=== PATIENT | female | born 1995 | race Caucasian/White ===

== ENCOUNTER 2023-04-03 06:10 | Inpatient (IN) | payer MEDICAID, SELFPAY ==
[2023-04-03] VITALS (96 sets, daily range): BP systolic 76–149; BP diastolic 40–102; PULSE 59–115; RESP 16; TEMP 36.1–37.3; O2SAT 82–100; BMI 38.7
[2023-04-03 07:26] LABS: Basophils Percent Auto 0.4 % (0.2-1.2); Eosinophils Absolute Auto 0.3 K/mm3 (0-0.3); Eosinophils Percent Auto 3.7 % (0-4.4); Hematocrit 32.5 % (37.0-47.0); Hemoglobin 10.1 g/dL (12.0-15.0); Immature Granulocyte Absolute 0.06 K/mm3 (0.00-0.031); Immature Granulocyte Percent A 0.7 % (0-0.5); Lymphocytes Absolute Auto 0.96 K/mm3 (0.9-3.2); Lymphocytes Percent Auto 11.8 % (18.3-44.2); Mean Corpuscular HGB Conc 31.1 g/dl (32-36); Mean Corpuscular Hemoglobin 25.8 pg (26-34); Mean Corpuscular Volume 83.1 fl (80-100); Mean Platelet Volume 11.5 fl (7.4-10.4); Monocytes Absolute Auto 0.7 K/mm3 (0.1-0.6); Monocytes Percent Auto 8.6 % (2.6-8.5); Neutrophils Absolute Auto 6.1 K/mm3 (1.3-6.7); Neutrophils Percent Auto 74.8 % (45.5-73.1); Platelet Count Result 208 k/mm3 (150-375); Red Blood Count 3.91 M/mm3 (4.2-5.4); Red Cell Distribution Width 14.6 % (11.5-14.5); White Blood Count 8.2 K/mm3 (4.5-10.0)
[2023-04-03] MEDS: LACTATED RINGERS 1,000 ML 125 ML IV CONT ×2 (07:38→12:16)
[2023-04-03] MEDS: ceFAZolin 2 GM/D5W 50 ML 2 GM/50 ML BAG IVPB (07:39)
[2023-04-03] MEDS: OXYTOCIN 30 UNITS/NS 500 ML 30 UNITS/500 ML BAG IV CONT (07:40)
--- NOTE | 2023-04-03 07:56 | WPDOBADMIT ---
Obstetrics - Admit Note Admission Note: record reviewed. No pertinent additions to the history and/or any subsequent changes in the physical findings that are not consistent with the expected course of the were found. Additions to the history and/or subsequent changes in the physical findings follow. IOL, SVE /-2 AROM small amount of clear odorless fluid
--- NOTE | 2023-04-03 07:57 | LDADM ---
This patient, Elyssa Barone, was admitted to Labor/Delivery/Recovery 104 on 04/03/23 at 06:10. Plans for labor, pain management and were discussed with patient. Patient/family oriented to hospital policies and general routines including ID bracelet, bed and alarms, visiting hours, pain management, procedures, bathroom and other care routines, personal items, smoking policy, room service/diet and guest tray routines, security routines, and visiting hours. Patient/Family are encouraged to report perceived risks to care and to ask questions if they do not understand what they are told or what they should do. See OBIX for further documentation.
[2023-04-03 08:11] LABS: Amphetamine Screen Urine Negative (Negative); Barbiturate Screen Urine Negative (Negative); Benzodiazepines Screen Urine Negative (Negative); Cannabinoid Screen Urine Negative (Negative); Cocaine Screen Urine Negative (Negative); Methadone Screen Urine Negative (Negative); Opiate Screen Urine Negative (Negative); Phencyclidine Screen Urine Negative (Negative)
--- NOTE | 2023-04-03 09:29 | WPDANESEPP ---
Anes - Eval Pre Procedure Procedure: labor pain management Date/Time: 04/03/23 09:29 Surgeon: Negin Preop Diagnosis: pain during labor Pre Op Diagnosis: Induction of Labor Patient Data Age: 27 Gender: F Height: 1.65 m Weight: 105.5 kg Last Vital Signs Temp 97.7 F 04/03/23 09:00 Pulse 93 04/03/23 09:01 BP 128/87 04/03/23 09:01 O2 Del Method Room Air 04/03/23 07:47 Allergies Allergy/AdvReac Type Severity Reaction Status Date / Time amoxicillin Allergy Rash Verified 04/03/23 07:42 Home Medications Medication Instructions Recorded Confirmed Type lansoprazole 15 mg capsule,delayed 15 mg PO DAILY 03/09/23 03/09/23 History release (Prevacid 24Hr) levothyroxine 50 mcg tablet 50 mcg PO DAILY 03/09/23 03/09/23 History vits no.126-ferrous fum 1 tablet PO DAILY 03/09/23 03/09/23 History 28 mg iron-folic acid 800 mcg tablet (Classic ) sertraline 50 mg tablet 50 mg PO DAILY 03/09/23 03/09/23 History Laboratory Tests 04/03/23 04/03/23 07:17 07:34 WBC 8.2 K/mm3 (4.5-10.0) RBC 3.91 L M/mm3 (4.2-5.4) Hgb 10.1 L g/dL (12.0-15.0) Hct 32.5 L % (37.0-47.0) MCV 83.1 fl (80-100) MCH 25.8 L pg (26-34) MCHC 31.1 L g/dl (32-36) RDW 14.6 H % (11.5-14.5) Plt Count 208 k/mm3 (150-375) MPV 11.5 H fl (7.4-10.4) Immature Gran % (Auto) 0.7 H % (0-0.5) Neut % (Auto) 74.8 H % (45.5-73.1) Lymph % (Auto) 11.8 L % (18.3-44.2) [place] % (Auto) 8.6 H % (2.6-8.5) Eos % (Auto) 3.7 % (0-4.4) Baso % (Auto) 0.4 % (0.2-1.2) Lymph # (Auto) 0.96 K/mm3 (0.9-3.2) [place] # (Auto) 0.7 H K/mm3 (0.1-0.6) Eos # (Auto) 0.3 K/mm3 (0-0.3) Baso # (Auto) 0.0 K/mm3 (0.0-0.1) Abs Immat Gran (auto) 0.06 H K/mm3 (0.00-0.031) Absolute Neuts (auto) 6.1 K/mm3 (1.3-6.7) Absolute Nucleated RBC 0.0 K/mm3 (0.0-0.012) Nucleated RBC % 0.0 % (0.0-0.2) Urine Opiates Screen Negative (Negative) Urine Methadone Screen Negative (Negative) Ur Barbiturates Screen Negative (Negative) Ur Phencyclidine Scrn Negative (Negative) Ur Amphetamine Screen Negative (Negative) U Benzodiazepines Scrn Negative (Negative) Urine Cocaine Screen Negative (Negative) U Cannabinoids Screen Negative (Negative) RPR Pending Blood Type A Positive Antibody Screen Negative Patient hx anesthesia problems: none Family hx anesthesia problems: none Results Review: All pre-operative results and documents have been reviewed as part of the pre-operative evaluation. [facility] Past Medical History Medical History (Updated 04/03/23 @ 09:27 by Yanni Taylor CRNA) Depression Hypothyroid Surgical History Surgical History (Updated 04/03/23 @ 09:28 by Yanni Taylor CRNA) History of eye surgery Family History Family History (Updated 03/09/23 @ 13:35 by Ebony Chinchilla RN) Other No pertinent family history Social History Social History Smoking status: Former smoker Tobacco type: cigarettes Smoking end date: 05/04/15 Substance use: never Lack of Transportation: No Lack of Food: Never True Current Housing: I Have Housing Concerned About Future Housing: No Difficulty Paying Gas/Electric Bills: No Difficulty Paying for Meds: No Currently Unemployed: No Education: High School Diploma/GED Difficulty w/ Childcare or Family Care: No Spiritual care concerns: No Exam Day of Procedure 04/03/23 09:29
[2023-04-03 14:01] LABS: Rapid Plasma Reagin Non-Reactive (NonReactive)
--- NOTE | 2023-04-03 16:04 | PM.OBPRVD ---
OB - Vaginal Delivery Note Procedure Delivery date: 04/03/23 Induction method: AROM and Per Pitocin Protocol Delivery monitor: External FHT and Internal FHT Route of delivery: Episiotomy description: None Laceration Description: None Specimen: No Quantitative Blood Loss (ml): 100 Anesthesia type: Epidural Disposition: Floor Baby Date of : 04/03/23 Time of : 15:56 Weeks of gestation at delivery: 39 Infant gender: Female Weight (pounds): 9 Weight (ounces): 0 presentation: vertex position: Left Occiput Anterior Placenta delivery description: Spontaneous Cord Vessel Description: 3 Vessels, Nuchal Cord and Reduced Narrative: head delivered OA, rotated to DANNIELLE, anterior shoulder unable to be delivered, head of bed down, donaldo stahl, manually attempted to internally rotte, unable, suprapubic pressure and able to reach posterior rm, posterior shoulder then anterior shoulder and the rest of baby delivered without difficulty, about 50 sec dystocia. baby to warmer moving all extremities
[2023-04-03] MEDS: BENZOCAINE 20% AER SPR (*SP) 56 GM CAN 1 SPRAY TOPICAL (16:32)
[2023-04-03] MEDS: WITCH HAZEL 40 PADS 1 PAD TOPICAL (16:32)
[2023-04-03] MEDS: OXYTOCIN 30 UNITS/NS 500 ML 30 UNITS/500 ML BAG 125 UNITS IV CONT (16:32)
[2023-04-03] MEDS: IBUPROFEN 600 MG TABLET PO (18:44)
[2023-04-03] MEDS: ACETAMINOPHEN 325 MG TABLET 650 MG PO (18:45)
[2023-04-04] MEDS: IBUPROFEN 600 MG TABLET PO ×2 (04:36→10:00)
[2023-04-04 04:50] LABS: Hemoglobin 9.8 g/dL (12.0-15.0)
--- NOTE | 2023-04-04 09:34 | PM.OBPNVD ---
OB - PN: Subj Subjective Date/time seen: 04/04/23 09:34 Patient comments: no complaints, pain well controlled, incisional pain, tolerating diet and flatus present OB - PN: Obj Data Labs 04/04/23 04:34 Labs: Laboratory Results - last 24 hr 04/03/23 04/04/23 07:17 04:34 Hgb 9.8 L Hct 32.0 L RPR Non-reactive OB - PN A/P Plan day: 1 Plan: routine care Comments: No problems, routine care Time Spent With Patient Time: Total time spent is greater than 50% in coordination of care (as documented) at patient's floor/unit and/or counseling patient: Exam Const: General: comfortable, no acute distress and alert Resp: Effort & Inspection: normal respiratory effort Auscultation: no crackles, no rales and no rhonchi Cardio: Rate: regular rate Heart sounds: no click, no murmurs and no rubs GI: Inspection: non-distended GI Palp: No Tenderness to palpation present (GI) Auscultation: normal bowel sounds Other: Incision - CDI Extrem: General: normal to inspection, no pedal edema and no calf tenderness
--- NOTE | 2023-04-04 09:35 | PM.OBDSVD ---
DS: Admitting Diagnosis Discharge Date April 04, 2023 Admitting Diagnosis term DS: Discharge Diagnosis Discharge Diagnosis (1) Term delivered: Code(s): O80 - Encounter for full-term uncomplicated delivery Status: Acute OB - DS: Summary OB Procedures : None OB Procedures Intrapartum: Spontaneous Vag Delivery OB Procedures: : None Peripartum Data Laceration Description: None Episiotomy description: None Time Spent with Patient Time attestation: Total time spent providing and/or coordinating discharge services: DS: Data Data Completed and Pending Labs on day of discharge: Labs from last 24 hours 04/04/23 04/03/23 04:34 07:17 Hgb 9.8 L Hct 32.0 L RPR Non-reactive Discharge Plan Discharge Discharging Clinician: Flores Kam Patient Disposition: Home, Self-Care Activity: pelvic rest Diet: regular Patient Instructions: Antibiotic Form Stand Alone Forms: General Discharge Information Follow-up/Referrals: Flores Kam MD [Physician] - Discharge Medications: Continued Classic 28 mg iron- 800 mcg Tablet 1 tablet PO DAILY levothyroxine 50 mcg Tablet 50 mcg PO DAILY lansoprazole [Prevacid 24Hr] 15 mg Capsule,Delayed Release(Dr/Ec) 15 mg PO DAILY sertraline 50 mg Tablet 50 mg PO DAILY Date of admission: 04/03/23 06:10 Primary Care Provider: PHYSICIAN,F[employer]RE OPT[employer] JOINTER Admitting Provider: Flores Kam Attending physician on admission: Flores Kam Condition: Stable
[2023-04-04 10:00] VITALS: BP 117/79; PULSE 69; RESP 16; TEMP 36.6; O2SAT 98
[2023-04-04] MEDS: SERTRALINE HCL 50 MG TABLET PO (10:00)
[2023-04-04] MEDS: LEVOTHYROXINE SODIUM 50 MCG TABLET PO (10:00)
[2023-04-04] MEDS: POLYSACCHARIDE IRON COMPLEX 150 MG CAPSULE PO (10:00)
[2023-04-04] MEDS: DOCUSATE SODIUM 100 MG CAPSULE PO (10:00)
[2023-04-04] MEDS: MULTIVIT/MIN/PREN/FOL AC/IRON TABLET 1 TAB PO (10:00)
--- NOTE | 2023-04-04 13:55 | WPDANLDPN2 ---
Anes-Prog Note L&D Date/Time: 04/04/23 13:55 Comfortable throughout: labor and delivery Neuraxial method: epidural Epidural/Spinal procedure site: clean & non-tender Neuro status: Neuro function grossly intact. Cardiovascular status: normal Respiratory status: normal Airway patency: baseline Mental status: baseline Post-Op hydration status: normal Vital Signs: Last Vital Signs Temp 36.6 C 04/04/23 10:00 Pulse 69 04/04/23 10:00 Resp 16 04/04/23 10:00 BP 117/79 04/04/23 10:00 Pulse Ox 98 04/04/23 10:00 O2 Del Method Room Air 04/03/23 07:47 Pain score (VAS): 3 I/O: Intake & Output 04/03/23 04/04/23 04/04/23 23:59 07:59 15:59 Intake Total 500 Output Total 530 Balance -30 Post-procedural complaints: none Patient feedback: Patient satisfied with anesthetic care.
[2023-04-04 14:16] VITALS: BP 122/67; PULSE 72; RESP 16; TEMP 36.7; O2SAT 100
[2023-04-06 14:48] VITALS: BP 139/90; PULSE 62; RESP 18; TEMP 36.7; O2SAT 98
== END 2023-04-04 17:55 | disposition home or self-care (01) | DRG 560 ==
LOC: ANHLDR 06:21 → ANHOB2 18:56
PROVIDERS: Admitting Provider Obstetrics & Gynecology; Referring Provider Advanced Practice Midwife; Visit Provider Obstetrics & Gynecology
DX: O99.824 Streptococcus B carrier state complicating childbirth (principal); Z37.0 Single live birth; Z3A.39 39 weeks gestation of pregnancy; O66.0 Obstructed labor due to shoulder dystocia; O69.81X0 Labor and delivery complicated by cord around neck, without compression, not applicable or unspecified
CPT/HCPCS: 36415; 80307; 85014; 85018; 85025; 86592; 86850; 86900; 86901; A9270; J0690; J2590; J2795; J7120

== ENCOUNTER 2025-01-31 12:47 | Emergency (ER) | payer OTHER, SELFPAY ==
--- NOTE | ~2025-01-31 | US_ITS ---
EXAMINATION: US OB <= 14 weeks fetus DATE: 01/31/2025 13:44 INDICATION: , unknown LMP. Abdominal pain. TECHNIQUE: Real-time transabdominal and transvaginal obstetric ultrasound. FINDINGS: The uterus measures uterus measures 8.5 x 5.0 x 5.8 cm. Right ovary measures 2.1 x 1.5 x 1.9 cm. Normal color Doppler flow. Left ovary measures 3.4 x 1.8 x 1.7 cm. Normal color Doppler flow. There is an intrauterine gestational sac, with pole identified. The crown rump length measures 0.73 cm, which correlates with a estimated gestational age of 6 weeks and 4 days. heart tones are identified measuring 133 bpm. There is a 1.1 x 0.9 x 2.0 cm probable subchorionic hemorrhage. IMPRESSION: 1. Single live intrauterine with an estimated gestational age of 6 weeks, 4 days by current ultrasound with estimated date of delivery of September 22, 2025. 2. There is a 1.1 x 0.9 x 2.0 cm probable subchorionic hemorrhage. A short-term follow-up ultrasound and serial beta hCGs is recommended. Reviewed, dictated and finalized at location [facility]. IMPRESSION: 1. Single live intrauterine with an estimated gestational age of 6 we eks, 4 days by current ultrasound with estimated date of delivery of September 22 26. 2. There is a 1.1 x 0.9 x 2.0 cm probable subchorionic hemorrhage. A short-term follow-up ultrasound and serial beta hCGs is recommended.
--- NOTE | ~2025-01-31 | US_ITS ---
Clinical history:Right upper quadrant pain. Positive test EXAM:Ultrasound abdomen limited TECHNIQUE:Multiple static grayscale images and color Doppler images were obtained of the upper-outer quadrant of the right breast. Comparisons:None available FINDINGS: No He sign according to the agricultural research technologist. Common duct measures 2.6 cm. Hepatopedal flow in the portal vein. Pancreas was not adequately visualized for evaluation. Visualized liver is unremarkable. No gallbladder wall thickening. No gallstones identified. IMPRESSION: 1. No sonographic evidence for acute cholecystitis. If symptoms persist or worsen, consider a short-term follow-up study or additional imaging for further assessment. Reviewed, dictated and finalized at location Q. IMPRESSION: 1. No sonographic evidence for acute cholecystitis. If symptoms persist or worsen, consider a short-term follow-up study or additio nal imaging for further assessment.
--- OUTSIDE RECORDS SUMMARY | 2025-01-31 10:00 | XMS_ITS | Encounter Summary ---
Author Organization [facility] Healthcare Address [address] [place] [address] Care Team Providers Care Field Care Coordinator Name Role Phone Unknown, Notinfile Primary Care Provider Unavail able Reason for Visit * Reason Comments Abdominal Pain For 7 days. Vomiting this morning. Feels like a knot. Has not eaten in four days and tries to push fluids but comes back up. Denies GI hx. Encounter Details Date Type Department Care Team (Late st Contact Info) Description 01/31/2025 10:00 AM CDT Office Visit [facility]venient Care at [address] [phone] Clara Escobedo NP [address] [facility] [address] [place], [place] [id number] Abdominal pain (Primary Dx); Positive test; Nausea and vomiting, unspecified vomiting type; Right upper quadrant abdominal tenderness without rebound tenderness Social History Tobacco Use Types Packs/Day Years Used Date Smoking Tobacco: Never Assessed Comments Unknown Sex and Gender Information Value Date Recorded Sex Assigned at Not on file 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 Gender Identity Not on file Sexual Orientation Not on file documented as of this encounter Last Filed Vital Signs Vital Sign Reading Time Taken Comments Blood Pressure 113/76 01/31/2025 9:59 AM CDT Pulse 67 01/31/2025 9:59 AM CDT Temperature 36.9 C (98.4 F) 01/31/2025 9:59 AM CDT Respiratory Rate 20 01/31/2025 9:59 AM CDT Oxygen Saturation 99% 01/31/2025 9:59 AM CDT Inhaled Oxygen Concentration - - Weight 83.1 kg (183 lb 4.8 oz) 01/31/2025 9:59 A M CDT Height - - Body Mass Index - - documented in this encounter Progress Notes * Clara Escobedo NP - 01/31/2025 10:00 AM CDT Images from the original note were not included. Subjective/Objective Patient ID: Elyssa Barone is a 29 y.o. female. This patient has verbally consented to recording this visit in order to utilize AI technology in generating this note. Chief Complaint Abdominal Pain (For 7 days. Vomiting this morning. Feels like a knot. Has not eaten in four days and tries to push fluids but comes back up. Denies GI hx. ) History of Present Illness Elyssa Barone is a 29 year old female who presents with abdominal pain, nausea, and vomiting. Nausea has persisted for about a week, with abdominal pain described as 'turning and knots.' Vomiting has been present for five days. She experiences chills and a low-grade fever, with temperatures around 99??F. Urinary symptoms include frequent urges to urinate with minimal output. She is surprised by a positive test during the visit, despite being on control. She has three children and denies recent sexual activity within the last three weeks. Her appendix and gallbladder are intact. Review of Systems All other systems reviewed and are negative. Physical Exam ABDOMEN: Tenderness in the right upper quadrant. Physical Exam Vitals and nursing note reviewed. Constitutional: General: She is awake. She is not in acute distress. Appearance: Normal appearance. She is not ill-appearing. HENT: Head: Normocephalic and atraumatic. Cardiovascular: Rate and Rhythm: Normal rate and regular rhythm. Heart sounds: Normal heart sounds. Pulmonary: Effort: Pulmonary effort is normal. Breath sounds: Normal breath sounds. Abdominal: General: Bowel sounds are decreased. Palpations: Abdomen is soft. Tenderness: There is abdominal tenderness in the right upper quadrant. There is no right CVA tenderness, left CVA tenderness, guarding or rebound. Neurological: Mental Status: She is alert and oriented to person, place, and time. Gait: Gait is intact. Gait normal. Psychiatric: Mood and Affect: Mood normal. Behavior: Behavior normal. Behavior is cooperative. Vitals: 01/31/25 0959 BP: 113/76 Pulse: 67 Resp: 20 Temp: 36.9 ??C (98.4 ??F) TempSrc: Oral SpO2: 99% Weight: 83.1 kg (183 lb 4.8 oz) No results found. No past medical history on file. Current Outpatient Medications: levothyroxine (SYNTHROID) 50 mcg tablet, Take 1 tablet (50 mcg total) by mouth daily, Disp: , Rfl: sertraline (ZOLOFT) 50 mg tablet, Take 1 tablet (50 mg total) by mouth daily, Disp: , Rfl: Slynd tablet tablet, , Disp: , Rfl: Allergies Allergen Reactions Amoxicillin Hives Social History Tobacco Use Smoking status: Not on file Smokeless tobacco: Not on file Substance and Sexual Activity Drug use: Not on file Sexual activity: Not on file Alcohol Use: Not on file No past surgical history on file. Procedures Assessment/Plan 1. Abdominal pain (Primary) - POCT urinalysis dipstick - Urine culture Urine, clean voided; Future - POCT hCG, urine 2. Positive test - POCT hCG, urine 3. Nausea and vomiting, unspecified vomiting type - POCT urinalysis dipstick - Urine culture Urine, clean voided; Future - POCT hCG, urine 4. Right upper quadrant abdominal tenderness without rebound tenderness Results LABS Urine test: Positive (01/31/2025) Urinalysis: Indicative of urinary tract infection (01/31/2025) Recent Results (from the past 4 hours) POCT urinalysis dipstick Collection Time: 01/31/25 10:11 AM Result Value Ref Range Color, Urine, POC Dark Yellow Clarity, ur, POC Cloudy (A) Clear Glucose, ur, POC Negative Negative Bilirubin, ur, POC Negative Negative Ketones, ur, POC Trace (A) Negative Specific [place], POC 1.025 1.003 - 1.030 Blood, ur, POC Trace (A) Negative pH, ur, POC 5.5 5.0 - 8.0 Protein, ur, POC 100. (A) Negative Urobilinogen, urine, POC 2.0 (A) 0.2 - 1.0 mg/dL Nitrite, ur, POC Positive (A) Negative Leukocytes, ur, POC Small (A) Negative Lot Number [id number] POCT hCG, urine Collection Time: 01/31/25 10:15 AM Result Value Ref Range HCG, ur, POC Positive (A) Negative Lot Number 1 QC Backgroud Clear Acceptable QC Control Line Acceptable Assessment & Plan Abdominal pain with nausea and vomiting Nausea and vomiting for five days with right upper quadrant pain. Differential includes gallbladderinfection, appendicitis, or complications. Imaging and blood work needed for diagnosis. - Refer to emergency room for likely imaging and blood work to rule out gallbladder infection, appendicitis, or other abdominal pathology. , confirmed by urine test Positive urine test. She was surprised by the result despite being on control. Blood test recommended for confirmation. - Advise confirmation of with a blood test at the emergency room. - Further evaluation in ED due to abdominal pain, vomiting. Rule out tubal Urinary tract infection Symptoms and urine test confirm urinary tract infection. Concern for progression to pyelonephritis - Refer to emergency room for further evaluation and potential treatment with IV antibiotics if kidney infection pending evaluation. Disposition Treatment plan including expectations, follow up, and return precautions discussed with patient/parent, verbalizes understanding. Medication dosage, use, and potential adverse reactions discussed with patient/parent. Advised to follow up with PCP if symptoms do not resolve as expected or sooner if condition worsens. Signs/symptoms warranting ER evaluation reviewed. Patient and/or guardian was given an opportunity to ask questions, questions answered. Clara Escobedo NP This office note has been partially dictated using [employer] software, and as a result portions of the record may have been created with this software. Occasional wrong-word or '[id number]' substitutions may have occurred due to the inherent limitations of voice recognition software. Read the chartcarefully and recognize, using context, where substitutions have occurred. Cosigned by Denny Chawla MD at 01/31/2025 10:29 AM CDT documented in this encounter Plan of Treatment Scheduled Orders Name Type Priority Associated Diagnoses Orde r Schedule Urine culture Urine, clean voided Microbiology Routine Abdominal pain Nausea and vomiting, unspecified vomiting type Expected: 01/31/2025, Expires: 01/31/2026 documented as of this encounter Procedures Procedure Name Priority Date/Time Associated Diagnosis Comments POCT HCG, URINE Routine 01/31/2025 10:15 AM CDT Abdominal pain Positive test Nausea and vomiting, unspecified vomiting type POCT URINALYSIS DIPSTICK Routine 01/31/2025 10:11 AM CDT Abdominal pain Nausea and vomiting, unspecified vomiting type documented in this encounter Results * (ABNORMAL) POCT hCG, urine (01/31/2025 10:15 AM CDT) HCG, ur, POC Positive(A) Negative Lot Number 1 QC Backgroud Clear Acceptable QC Control Line Acceptable Urine 01/31/2025 10:1 5 AM CDT Clara Escobedo POINT OF CARE TEST ORDERABLES F inal Result * (ABNORMAL) POCT urinalysis dipstick (01/31/2025 10:11 AM CDT) Color, Urine, POC Dark Yellow Clarity, ur, POC Cloudy(A) Clear Glucose, ur, POC Negative Negative Bilirubin, ur, POC Negative Negative Ketones, ur, POC Trace(A) Negative Specific [place], POC 1.025 1.003 - 1.030 Blood, ur, POC Trace(A) Negative pH, ur, POC 5.5 5.0 - 8.0 Protein, ur, POC 100.(A) Negative Urobilinogen, urine, POC 2.0(A) 0.2 - 1.0 mg/dL Nitrite, ur, POC Positive(A) Negative Leukocytes, ur, POC Small(A) Negative Lot Number [id number] Urine 01/31/2025 10:1 1 AM CDT [facility] POINT OF CARE TEST ORDERABLES F inal Result documented in this encounter Visit Diagnoses Diagnosis Abdominal pain- Primary Abdominal pain, unspecified site Positive test examination or test, positive result Nausea and vomiting, unspecified vomiting type Right upper quadrant abdominal tenderness without rebound tenderness documented in this encounter Historical Medications * This list may reflect changes made after this encounter. levothyroxine (SYNTHROID) 50 mcg tablet Take 1 tablet (50 mcg total) by mouth daily 05/13/2023 added in this encounter Care Teams Field Care Coordinator Relationship Specialty Start Date End Date Unknown, Notinfile PCP - General 05/30/24 documented as of this encounter
--- OUTSIDE RECORDS SUMMARY | 2025-01-31 10:00 | XMS_ITS | Encounter Summary ---
Author Organization [facility] Healthcare Address [address] [place] [address] Care Team Providers Care Anime Artist Name Role Phone Unknown, Notinfile Primary Care [...] Description 01/31/2025 10:00 AM CDT Office Visit [facility] Medical [facility] Convenient Care at [address] [phone] Clara Escobedo NP 2 [facility] [address] [place], [place] [id number] Abdominal pain (Primary Dx); Positive test; Nausea and vomiting, unspecified vomiting type; Right upper quadrant abdominal tenderness without rebound tenderness Social History Tobacco Use Types Packs/Day Years Used Date Smoking Tobacco: Never Assessed Comments Unknown Sex and Gender Information Value Date Recorded Sex Assigned at Not on file 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 (A) Negative Urobilinogen, urine, POC 2.0 (A) 0.2 - 1.0 mg/dL Nitrite, ur, POC Positive (A) Negative Leukocytes, ur, POC Small (A) Negative Lot Number [id number] POCT hCG, urine Collection Time: 01/31/25 10:15 [...] office note has been partially dictated using [employer] software, and as a result portions of the record may have been created with this software. Occasional wrong-word or '[id number]' substitutions may have occurred due to the [...] Negative Ketones, ur, POC Trace(A) Negative Specific [place], POC 1.025 1.003 - 1.030 Blood, ur, POC Trace(A) Negative pH, ur, POC 5.5 5.0 - 8.0 Protein, ur, POC 100.(A) Negative Urobilinogen, urine, POC 2.0(A) 0.2 - 1.0 mg/dL Nitrite, ur, POC Positive(A) Negative Leukocytes, ur, POC Small(A) Negative Lot Number [id number] Urine 01/31/2025 10:1 1 AM CDT [facility] POINT OF CARE TEST ORDERABLES F inal [...] 05/13/2023 added in this encounter Care Teams Anime Artist Relationship Specialty Start Date End Date Unknown, Notinfile PCP - General 05/30/24 documented as of this encounter
--- OUTSIDE RECORDS SUMMARY | 2025-01-31 12:53 | XMS_ITS | Clinical Summary ---
Author Organization [address] [phone] Care Team Providers Care Automotive Lube Technician Name Role Phone Unknown, Notinfile Primary Care Provider Unavail able Allergies Active Allergy Reactions Criticality Noted Date Comments Amoxicillin Hives Medium 06/01/2024 Medications Slynd tablet tablet 03/29/2024 Active sertraline (ZOLOFT) 50 mg tablet Take 1 tablet (50 mg total) by mouth daily Active levothyroxine (SYNTHROID) 50 mcg tablet Take 1 tablet (50 mcg total) by mouth daily 05/13/2023 Active Active Problems No known active problems Encounters Date Type Department Care Team Description 01/31/2025 10:00 AM CDT Office Visit [facility] Medical [facility] Convenient Care at [address] [phone] Clara Escobedo NP Abdominal pain (Primary Dx); Positive test; Nausea and vomiting, unspecified vomiting type; Right upper quadrant abdominal tenderness without rebound tenderness from Last 3 Months Social History Tobacco Use Types Packs/Day Years Used Date Smoking Tobacco: Never Assessed Comments Unknown Sex and Gender Information Value Date Recorded Sex Assigned at Not on file 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 Gender Identity Not on file Sexual Orientation Not on file Obstetrics History Last Filed Vital Signs Vital Sign Reading [...] - - Body Mass Index - - Plan of Treatment Health Maintenance Due Date Last Done Comments Cervical Cancer Screening 1997 Depression Screening 1997 Hepatitis C Screening 1997 DTaP/Tdap/Td Vaccine (1 - Tdap) 2008 Varicella Vaccines (1 of 2 - 13+ 2-dose series) 2010 Hepatitis B Screening 2015 Regular Well Visit/Exam 18-64 2015 HPV Vaccines (1 - 3-dose SCD M series) 2024 Influenza Vaccine (#1) 2025 Pneumococcal vaccine <65 Aged Out No longer eligible based on patient's age to complete this topic Procedures Procedure Name Priority Date/Time Associated Diagnosis Comments POCT HCG, URINE Routine 01/31/2025 10:15 AM CDT Abdominal pain Positive test Nausea and vomiting, unspecified vomiting type POCT URINALYSIS DIPSTICK Routine 01/31/2025 10:11 AM CDT Abdominal pain Nausea and vomiting, unspecified vomiting type from Last 3 Months Results * (ABNORMAL) POCT hCG, urine (01/31/2025 10:15 AM CDT) HCG, ur, POC Positive(A) Negative Lot Number 1 QC Backgroud Clear Acceptable QC Control Line Acceptable Urine 01/31/2025 10:1 5 AM CDT Clara Escobedo NP POINT OF CARE TEST ORDERABLES F inal Result * (ABNORMAL) POCT urinalysis dipstick (01/31/2025 10:11 AM CDT) Color, Urine, POC Dark Yellow Clarity, ur, POC Cloudy(A) Clear Glucose, ur, POC Negative Negative Bilirubin, ur, POC Negative Negative Ketones, ur, POC Trace(A) Negative Specific [place], POC 1.025 1.003 - 1.030 Blood, ur, POC Trace(A) Negative pH, ur, POC 5.5 5.0 - 8.0 Protein, ur, POC 100.(A) Negative Urobilinogen, urine, POC 2.0(A) 0.2 - 1.0 mg/dL Nitrite, ur, POC Positive(A) Negative Leukocytes, ur, POC Small(A) Negative Lot Number [id number] Urine 01/31/2025 10:1 1 AM CDT us Clara Escobedo NP POINT OF CARE TEST ORDERABLES F inal Result from Last 3 Months Insurance [facility] Care Teams Automotive Lube Technician Relationship Specialty Start Date End Date Unknown, Notinfile PCP - General 05/30/24
--- OUTSIDE RECORDS SUMMARY | 2025-01-31 12:53 | XMS_ITS | Data Portability ---
Author Organization [facility] [place] Address [address] [place] [place] [address] [place] [address] Assessment Encounter Date Assessment Date Assessment LastModified by Organization Details LastModified Time 04/01/2023 04/01/2023 Patient is _39__weeks . Discussed plan. Not available 04/01/2023 11:59:05 Plan of Treatment Reminders Order Date Submit Date Provider Last Modified By Organization Details Last Modified Time Details Appointments None recorded. Lab TSH, serum or plasma 2023 024 [facility] (Lab), [address], [place], [address], 4 02:59:06 Referral None recorded. Procedures None recorded. Surgeries None recorded. Imaging US, obstetric, biophysical profile 2022 023 [email or web address], [address], [place], [address], 3 12:21:42 non-stress test 2022 023 [email or web address] [address], [address], [place], [address], 3 12:13:35 non-stress test 2022 023 [email or web address], [place], [address], 11:56:43 Medication Orders None recorded. Patient TargetsNo targets recorded. Patient InstructionsNo instructions recorded. Reason for Referral None Reported. Results Created Date Observation Date Name Description Value Unit Range Abnormal Flag Note LastModifiedBy Organization Detail LastModifiedTime 03/11/2003/11/2023 CULTU RE: GROUP B STREP SCREE N, REFLE X SUSCE PTIBI LITY result report SEE RESULT S BELOW abnormal Test: Cultu re: Group B Strep , Refle x Susce ptibi lity ([facility]/ [facility]/K H/V[facility] ) Speci men Sourc e: Vagin a/Rec cameron Speci men Type: Vagin al/Re ctal Speci men Date: 2022 4:44 PM Resul t Date: 03/15 4:08 PM Resul t Statu s: Final resul t Abnor mal: Yes Resul ting Lab: [facility] [address] [facility] [address] Tel: CULTU RE ----- ----- ----- --- Posit simin for Strep tococ cus agala ctiae (Grou p B) (Abno rmal) Clind amyci n = resis tant, eryth romyc in = resis tant. Cefaz braden may be used for intra partu m proph ylaxi s in penic illin -paresh rgic women at low risk, and Vanco mycin is recom bertha d for women at high risk for anaph ylaxi s. Susce ptibi lity testi ng is not neces rosas for these drugs . Not Available [facility] (Lab) [address], [place], [address], 03/15/2023 17:10:35 05/06/19 24 05/06/2023 TSH, REFLE X FREE T4 TSH 1.91 uIU/m L 0.30-5 .33 Not Available [facility] (Lab) [address], [place], [address], 05/07/2023 02:59:05 03/18/20 23 03/18/2023 non-s tress test No observ ation record ed. [address], [place], [address], 03/18/2023 21:02:22 03/25/20 23 03/25/2023 non-s tress test No observ ation record ed. [address], [place], [address], 03/26/2023 22:23:27 04/01/20 23 04/01/2023 non-s tress test No observ ation record ed. [email or web address] [address], [place], [address], 04/01/2023 12:17:08 04/01/20 23 04/01/2023 US, obste tric, bioph ysica l profi le No observ ation record ed. [facility] [address], [place], [address], 04/01/2023 12:20:28 04/01/2004/01/2023 US, obste tric, follo w-up No observ ation record ed. [email or web address], [place], [address], 04/02/2023 10:06:58 Result Notes None recorded. Problems Name Problem SNOMED Code Status Onset Date Resolution Date Notes Provider Name and Address Organization Details Recorded Time Anxiety in pregnanc y 62665186808 109 Completed zoloft Chris taylor [facility] 3 13:22:50 Marijuan a user 352786076 Completed quit at 10w Chris taylor [facility] 3 13:22:50 Hypothyr oidism 03232660 Active increase d to 50mcg. repeat wnl. repeat 34w Chris Salvador [facility] 3 13:22:50 Hypothyr oidism 41089320 Completed increase d to 50mcg. repeat wnl. repeat 34w Chris Salvador [facility] 3 13:22:50 Pregnanc y 98581568 Completed 202204/09/2023 Chris Salvador [facility] 3 13:22:57 Mixed anxiety and depressi ve disorder 253873022 Active 2023 Destini Horton [facility] 4 11:29:44 Problem Notes None recorded. Procedures Surgical History Date Name Laterality Status Provider Name and Address Organization Details Recorded Time 05/21/19 21 Date of Last Pap Smear completed Destini Horton [facility] 02/24/2023 13:06:53 05/04/18 98 operation on extraocular muscle completed Destiniper Horton [facility] 03/25/2023 11:38:02 Imaging Results None recorded. Procedure Notes None recorded. Medical Equipment None Reported. Allergies Allergen ID Allergen Name Allergen Category Reaction Reaction Severity Criticality Documentation Date Start Date Code Code System Note Provider Name and Address Organization Details Recorded Time 65939 amoxicill in medicatio n Not available Not available Not available 03/25/2023 723 RxNorm Destini Horton [facility] 3 11:38:15 Medications Name Sig Start Date Stop Date Status Note LastModified by Organization Details LastModified Time Aviane 0.1 mg-20 mcg tablet TAKE 1 TABLET BY MOUTH ONCE DAILY 08/27 completed Not Available Not Available Not Available Loestrin Fe 05/23 (28-Day) 1 mg-20 mcg (21)/75 mg (7) tablet take 1 tablet by oral route every day 08/30 completed Prescrib ed Elsewher e: No Locat ion: Thien hutchinson [facility] odify By: damaris Ulrich r DateTime : 05/31/19 19 01:00:00 PM Not Available Not Available Not Available metronida zole 500 mg tablet Take 1 tablet every 12 hours by oral route for 7 days. 08/27 completed Not Available Not Available Not Available amoxicill in 500 mg tablet take 1 tablet by oral route 3 times every day for 10 days 08/12 completed Prescrib ed Elsewher e: No Locat ion: Thien hutchinson [facility] odify By: blossom ferro DateTime : 08/04/19 18 12:36:52 PM Not Available Not Available Not Available Macrobid 100 mg capsule 03/25 completed Not Available Not Available Not Available Synthroid 25 mcg tablet 03/25 completed Not Available Not Available Not Available phenazopy ridine 100 mg tablet TAKE 1 TABLET BY MOUTH THREE TIMES DAILY FOR 7 DAYS 08/27 completed Not Available Not Available Not Available levothyro xine 50 mcg tablet Take 1 tablet by mouth once daily 2023 active Not Available Not Available Not Avai lable Vitamin D2 1,250 mcg (50,000 unit) capsule take 1 capsule by oral route every week 09/11 completed Prescrib ed Elsewher e: No Locat ion: Thien hutchinson [facility] odify By: damaris Ulrich r DateTime : 05/29/19 16 01:33:45 PM Not Available Not Available Not Available sertralin e 50 mg tablet TAKE 1 TABLET BY MOUTH ONCE DAILY active Not Available Not Available No t Available Augmentin 500 mg-125 mg tablet take 1 tablet by oral route every 12 hours 01/29 completed Prescrib ed Elsewher e: No Locat ion: Thien [facility] odify By: damaris Ulrich r DateTime : 01/16/20 18 02:15:00 PM Not Available Not Available Not Available Ro 0.35 mg tablet take 1 tablet by oral route every day 08/30 completed Prescrib ed Elsewher e: No Locat ion: Thien hutchinson [facility] odify By: damaris Ulrich r DateTime : 03/02/20 18 10:30:00 AM Not Available Not Available Not Available Prevacid 08/27 completed Not Available Not Available Not Available Slynd 4 mg (28) tablet TAKE 1 TABLET BY MOUTH ONCE DAILY active Not Available Not Available No t Available Vitals Date Recorded Body height Body mass index (BMI) Body weight Systolic And Diastolic Provider Name and Address Organization Details Last Updated DateTime 05/06/2023 167.64 cm 33.7 kg/m2 27000.81 g 121/81 mm[Hg] Destini Horton [facility] 05/06/2023 11:29:05 Date Recorded Body height Body mass index (BMI) Body weight Systolic And Diastolic Provider Name and Address Organization Details Last Updated DateTime 03/25/2023 167.64 cm 36.8 kg/m2 636387.06 036 g 117/77 mm[Hg] Destini Horton [facility] 03/25/2023 11:36:43 Date Recorded Body height Body mass index (BMI) Body weight Systolic And Diastolic Provider Name and Address Organization Details Last Updated DateTime 04/01/2023 167.64 cm 37.4 kg/m2 161975.42 984 g 123/81 mm[Hg] Destini Horton [facility] 04/01/2023 11:55:01 Social History Question Answer Notes LastModified by Organizat ion Details LastModified Time Tobacco Smoking Status Former Smoker Destini Horton [facility], [facility] 05/06/2023 11:29:24 Do You Have An Advance Directive? No [email or web address] Information n ot available 03/18/2023 If You Are , What Was Your Level Of Alcohol Consumption Prior To ? None [email or web address] Information not available 05/06/2023 Are You Blind Or Do You Have Difficulty Seeing? No Information n ot available 02/03/2023 What Is Your Level Of Caffeine Consumption? Heavy Information not available 05/21/2020 How Much Tobacco Do You Chew? None Information not available 02/03/2023 In The 14 Days Before Symptom Onset, Have You Had Close Contact With A Laboratory-confirm ed COVID-19 While That Case Was Ill? No Information n ot available 02/03/2023 In The 14 Days Before Symptom Onset, Have You Had Close Contact With A Person Who Is Under Investigation For COVID-19 While That Person Was Ill? No Information not available 02/03/2023 Have You Been To An Area Known To Be High Risk For COVID-19? No Information not available 02/03/2023 Are You Deaf Or Do You Have Serious Difficulty Hearing? No Information not available 02/03/2023 What Type Of Diet Are You Following? REGULAR Information n ot available 02/03/2023 What Is The Highest Grade Or Level Of School You Have Completed Or The Highest Degree You Have Received? [id number] Information not available 02/03/2023 When Did You Quit Smoking? 6-10yearssin celastcigare tte [email or web address] Information not available 05/06/2023 Are There Any Guns Present In Your Home? No Information not available 02/03/2023 Do You Use Your Seat Belt Or Car Seat Routinely? Yes Information not available 02/03/2023 Do You Have Smoke And Carbon Monoxide Detectors In Your Home? Yes Information not available 02/03/2023 How Much Tobacco Do You Smoke? No Information not available 02/03/2023 Do You Use Sunscreen Routinely? Yes Information not available 02/03/2023 Has Tobacco Cessation Counseling Been Provided? No [email or web address] Information not available 05/06/2023 How Many Years Have You Smoked Tobacco? 2 [email or web address] Information not available 03/11/2023 Have You Used IV Drugs? No Information not available 02/25/2023 Do You Have Difficulty Walking Or Climbing Stairs? No [email or web address] Information not available 05/06/2023 Sex: Unknown Functional Status Question Answer Note LastModified by Organizat ion Details LastModified Time Do you use any illicit or recreational drugs? No Information not available 05/21/2020 Do you or have you ever used any other forms of tobacco or nicotine? No [email or web address] Information not available 05/06/2023 What is your level of alcohol consumption? Occasional [email or web address] Information not available 05/06/2023 Are you able to walk independently without assistance or assistive devices? YESWOREST Information not available 02/03/2023 Are you able to care for yourself independently? Yes [email or web address] Information not available 05/06/2023 What is your occupation? [employer] [email or web address] Information not available 05/06/2023 Do you have difficulty dressing, bathing, grooming, or toileting? No [email or web address] Information not available 05/06/2023 What is your exercise level? Moderate Information not available 05/21/2020 Mental Status Question Answer Note LastModified by Organization D etails LastModified Time Do you feel stressed (tense, restless, nervous, or anxious, or unable to sleep at night)? [id number] [email or web address] Information not available 05/06/2023 Family History Relationship Description Onset Age of this Age Resolved Age Notes LastModified by Organization Details LastModified Time Mother Asthma Not available 11:19:35 Father Hypertensive disorder Not available 2020 11:19:40 Notes:Father: Hypertension M other: Asthma Medical History Condition Response Allergies (Food, seasonal, environmental ) N Other N Breast Cancer N Drug/Latex Allergies/Reactions N Blood Transfusion N Dermatologic Disorders N Lung Disease N Defects or Inherited Disease N Breast Problem N Gestational Diabetes N Hematologic disorders N Anesthesia Complications N History of STI N Deep Vein Thrombosis N Polycystic ovary syndrome N Anxiety Disorder N Autoimmune disease N Arthritis N Infertility N Polyps N Acid Reflux (GERD) N History of abnormal pap N Cancer N Stroke N Varicosities N Neurologic/Epilepsy Y Endometriosis N High Cholesterol N Headaches N Fibromyalgia N Kidney Disease N Heart Problems N Kidney or Bladder Problems N Thyroid Problems N GI Problems N Eating Disorder N Anemia N Art (IVF or FET) N Psychiatric Illness N Ovarian Cancer N Diabetes N Pulmonary (TB, Asthma) N Hepatitis/Liver Disease N No Past Medical History N Eczema N Urinary Tract Infection N Abuse/Domestic Violence N Asthma N Trauma/Violence N Depression/ depression N Heart Disease N Pre-Eclampsia N Hypertension N Osteoporosis N Thrombophilias N Gynecological History Statement/Question Response Date of LMP 06/18/2022 On BCP's at Conception? N N Was last menstrual period normal Y STIs/STDs N HPV Vaccine N Duration of Flow (days) 5 Current Control Method None Age at First Child 20 Frequency of Cycle (Q days) 5 Sexually Active? Y N/A Age of first menstrual cycle 13 Date of Last Pap Smear 05/21/2020 Sexual Problems? N Desired Control Method BCPs LMP Approximate N Obstetrics History GPAL:G 3 P 3 0 0 3 Type Value Full Term 3 Living 3 Total 3 Past Encounters Encounter ID Performer Location Encounter Start Date Encounter Closed Date Diagnosis/Indication Diagnosis SNOMED-CT Code Diagnosis ICD10 Code Diagnosis IMO Codes Diagnosis Note [id number] [facility] [address] [address] 05/21/2020 13:58:33 05/21/2020 14:46:02 Gynecologic examination 29458448 Z01.419 Take Calcium with Vitamin D 1200mg daily if not receiving in daily diet. It is strongly advised to have an annual flu shot and up can obtain at most pharmacies . If you have not had a TDap shot in the last 10 years you should obtain one as well. Discussed with patient & provided with informatio n regarding Gardisil vaccine to prevent the 4 strains for HPV that cause cervical cancer if under age 26. Encourage safe sexual practices, to use condoms and limit partners if not already in a monogamous relationsh ip. Do monthly self breast exams. Have mammogram yearly or every other year depending on family history. BRCA testing is now available for patients with strong genetic history of female cancer. If interested contact the office. Engage in daily exercise of low impact aerobic exercise 45-60 minutes 4-5 times weekly. Avoid tobacco and illicit drugs as well as using moderation with alcohol intake less than 1-2 8 oz beverages daily. This lifestyle behavior pattern will lead to less health conditions and longer life span. If BMI greater than 25 weight watchers or dietary consult advised. Patient received above instructio ns, and questions have been answered. If you have any questions please call or respond to this email. Patient was made aware of the patient portal and may obtain a paper copy of today's plan if desired. Norm pap hx monogamous x 5yrs Two boys age 3, & 5 Declined std screening Pap sent Contracept formerly [facility] care management 535170252 Z30.9 Happy on pills RF sent [id number] Leah Saxena [facility] [address],[place] [address] 12/26/2020 14:05:49 12/28/2020 14:51:18 Urinary symptoms 763741383 R39.9 [id number] Gardenia Molina MD [place] [address],[place] [address] 08/27/2022 09:21:17 08/27/2022 11:00:01 Uncertain viability of 983803280 O36.80X0 Z3A.08 [id number] Gardenia Molina MD [place] [address],[place] [address] 08/27/2022 09:21:43 08/28/2022 12:07:10 test positive 044224287 Z32.01 Anxiety in 520 9651842 9109 F41.9 Venereal d isease screening 847497467 Z11.3 Vaccination not done 566 5965224 9108 Z28.9 covid [id number] Gardenia Molina MD [place] [address],[place] [address] 09/24/2022 15:12:47 09/24/2022 16:02:00 screening 793664195 Z36.82 [id number] Gardenia Molina MD [place] [address],[place] [address] 09/24/2022 15:15:21 09/25/2022 16:30:14 Routine care 690700596 Z34.91 Anxiety in 600 9914751 9109 F41.9 [id number] MD Jess Mayfield [address],[place] [address] 10/22/2022 11:42:41 10/22/2022 12:16:59 Routine care 018525014 Z34.91 [id number] MD Jess [place] [address],[place] [address] 11/19/2022 11:14:37 11/19/2022 13:10:42 screening for malformation 855933152 Z36.3 [id number] Gardenia Molina MD [place] [address],[place] [address] 11/19/2022 11:15:26 11/19/2022 13:00:40 Routine care 887762403 Z34.91 Hypothyroidism 57445271 E03.9 [id number] Gardenia Molina MD [place] [address],[place] [address] 12/17/2022 10:57:36 12/18/2022 10:27:40 Routine care 053053782 Z34.91 Hypothyroidism 28561599 E03.9 Uterine si ze for dates discrepancy 529610992 O26.849 [id number] Gardenia Molina MD [place] [address],[place] [address] 01/12/2023 14:29:25 01/12/2023 15:24:39 Uterine size for dates discrepancy 969620905 O26.843 Z3A.28 [id number] Gardenia Molina MD [place] [address],[place] [address] 01/12/2023 14:29:48 01/12/2023 15:39:12 Routine care 419710603 Z34.91 [id number] Gardenia Molina MD [place] [address],[place] [address] 01/27/2023 12:09:46 01/27/2023 13:43:53 Routine care 944003464 Z34.91 [id number] Bradly Kam MD [place] [address],[place] [address] 02/03/2023 10:54:22 02/03/2023 11:59:38 Hypothyroidism in 479759485 O99.283 Z3A.31 [id number] Bradly Kam MD [place] [address],[place] [address] 02/03/2023 10:54:41 02/03/2023 12:22:58 Hypothyroidism in 088139308 O99.283 Z3A.31 [id number] Marisol Camacho [facility] [address],[place] [address] 02/25/2023 12:10:40 02/25/2023 12:30:02 Routine care 098406434 Z34.93 [id number] Marisol Camacho [facility] [address],[place] [address] 03/11/2023 12:27:12 03/11/2023 13:04:22 Routine care 481387838 Z34.93 [id number] Marisol Camacho [facility] [address],[place] [address] 03/18/2023 11:03:08 03/18/2023 13:34:35 Routine care 386038709 Z34.93 [id number] Bradly Kam MD [place] [address],[place] [address] 03/18/2023 12:13:13 03/18/2023 12:46:15 Hypothyroidism in 804302551 O99.283 Z3A.31 [id number] Bradly Kam MD [place] [address],[place] [address] 03/25/2023 10:46:03 03/25/2023 11:56:43 Hypothyroidism in 892955286 O99.283 Z3A.31 [id number] Marisol Camacho [facility] [address],[place] [address] 03/25/2023 10:46:28 03/25/2023 11:56:30 Routine care 607269793 Z34.93 [id number] Bradly Kam MD [place] [address],[place] [address] 04/01/2023 10:50:16 04/01/2023 13:22:55 Hypothyroidism in 096843626 O99.283 Z3A.39 [id number] Marisol Camacho [facility] [address],[place] [address] 04/01/2023 10:50:35 04/01/2023 12:04:49 Routine care 809926511 Z34.93 [id number] Bradly Kam MD [place] [address] [address] 04/01/2023 11:34:37 04/01/2023 12:21:42 condition affecting obstetrical care of mother 703328217 O36.8330 [id number] Marisol Camacho CNM [place] [address] [address] 05/06/2023 11:07:54 05/06/2023 13:56:03 Hypothyroidism 54184055 E03.9 care 56968039 8 Z39.2 start slynd, reviewed, se risks and benefits, f/u 6 mo wwe Health Concerns Section Related Observation LastModified by Organization Detai ls LastModified Time None Recorded Concern Status LastModified by Organization Details LastModified Time None Recorded Advance Directives Directive N: Payers Insurance Date Sequence Insurance Name Policy Number Policy Xiong Covered Member ID Xiong Member ID Guarantor Name 05/06/2023 1 [place] [facility] PUBLIC AID Elyssa Barone [id number] Elyssa Barone 12/17/2022 1 [facility] PRIOR TO 11/01/2020 (MEDICAID REPLACEMENT - HMO) Elyssa Barone [id number] Elyssa Barone 04/20/2023 1 [facility] ON OR AFTER 11/01/20 (MEDICAID REPLACEMENT - HMO) Elyssa Barone [id number] Elyssa Barone 05/06/2023 1 [facility] ON OR AFTER 11/01/20 (MEDICAID REPLACEMENT - HMO) Elyssa Barone [id number] Elyssa Abisai Notes Date Note Type Note Provider Name and Address Organization Details Recorded Time 3 text/html Generic HPI TemplateReported by Patient [address] [place], [address], [facility] 03/25/2023 11:52:10 3 text/html Generic HPI TemplateReported by Patient [address], [place], [address], [facility] 04/01/2023 12:03:33 4 text/html VisitReported by PatientHPIFor quality, patient reportsnsvd. For context, patient reportscomplications of : none,complications of labor: none, complications: none,feeding choice: breast,good support from partner/family, andresumed menstrual bleeding no(shoulder dystocia <minute). For associated symptoms, patient reportsno abnormal bleeding,no vaginal discharge,no pelvic pain,laceration well healed,no constipation,no fecal incontinence,no dysuria,no urinary incontinence,no fever,no problems,no mastitis, andnormal mood. For contraception plan, patient reportsprogesterone only pill.doing well, baby getting ig, small increase in anxiety would like to continue same dosageROS as noted in the HPI Marisol Camacho, PHUONG [address], [place], [address], [facility] 05/06/2023 13:46:06 OBGyn Episode Ob Episode Information Episode Created Date Number of Fetuses Patient Bloodtype Patient rh Status Prepregnancy Weight lbs Domestic Partner Domestic Partner Phone Father Name Ems Driver Status 05/19/19 21 1 CLOSED Fetus Data First Name Last Name Admitted to NICU Weight (g) Sex Living Outcome Pediatric Complications Fetus ID Race Codes Race Delivery Type 3600.15 9704 M Full Term 7179 Vaginal Delivery Anders Calculation Initial Anders Date Initial Exam Date Initial Exam Provider Initial Ultrasound Date Last Menstrual Period Date Ultra Sound Weeks Gestation 0 Eighteen To Twenty Week Anders Update Ultra Sound Date Fundal Height At Umbil Quickening Date Ultra Sound Latest Weeks Gestation Final Anders Confirmed By Final Anders Confirmed Date Final Anders Date Ultra Sound Latest Days Gestation 0 0 Menstrual History Last Menstrual Date Menses Monthly On Bcp Conception Prior Menses Frequency Hcg Plus Date Menarche Onset Age Delivery Information Delivery Date Delivery Type Labor Anesthesia Weeks Gestation Incision Type Labor Labor Length Hrs Delivered By Post Complications Tubal Sterilization Discharge Date Comments 6 38.6 GBS + Discharge Information Feeding Method Contraceptive Method Maternal HG B and HCT Levels Ob Episode Information Episode Created Date Number of Fetuses Patient Bloodtype Patient rh Status Prepregnancy Weight lbs Domestic Partner Domestic Partner Phone Father Name Ems Driver Status 05/19/19 21 1 CLOSED Fetus Data First Name Last Name Admitted to NICU Weight (g) Sex Living Outcome Pediatric Complications Fetus ID Race Codes Race Delivery Type 3600.15 [id number] M Full Term [id number] Vaginal Delivery Anders Calculation Initial Anders Date Initial Exam Date Initial Exam Provider Initial Ultrasound Date Last Menstrual Period Date Ultra Sound Weeks Gestation 0 Eighteen To Twenty Week Anders Update Ultra Sound Date Fundal Height At Umbil Quickening Date Ultra Sound Latest Weeks Gestation Final Anders Confirmed By Final Anders Confirmed Date Final Anders Date Ultra Sound Latest Days Gestation 0 0 Menstrual History Last Menstrual Date Menses Monthly On Bcp Conception Prior Menses Frequency Hcg Plus Date Menarche Onset Age Delivery Information Delivery Date Delivery Type Labor Anesthesia Weeks Gestation Incision Type Labor Labor Length Hrs Delivered By Post Complications Tubal Sterilization Discharge Date Comments 8 39.6 +GBS Discharge Information Feeding Method Contraceptive Method Maternal HG B and HCT Levels Ob Episode Information Episode Created Date Number of Fetuses Patient Bloodtype Patient rh Status Prepregnancy Weight lbs Domestic Partner Domestic Partner Phone Father Name Ems Driver Status 09/25/19 23 1 A Positive 172 CLOSED Fetus Data First Name Last Name Admitted to NICU Weight (g) Sex Living Outcome Pediatric Complications Fetus ID Race Codes Race Delivery Type 4082.32 8 F true Full Term [id number] Vaginal Delivery Problems Problem Notes Problem Name Start Date End Date Resolution Snomed Code Not e Marijuana user [id number] quit at 10w Hypothyroidism [id number] incre ased to 50mcg. repeat wnl. repeat 34w Anxiety in [id number] zoloft Anders Calculation Initial Anders Date Initial Exam Date Initial Exam Provider Initial Ultrasound Date Last Menstrual Period Date Ultra Sound Weeks Gestation 04/05/2023 09/24/2022 08/27/2022 8 Eighteen To Twenty Week Anders Update Ultra Sound Date Fundal Height At Umbil Quickening Date Ultra Sound Latest Weeks Gestation Final Anders Confirmed By Final Anders Confirmed Date Final Anders Date Ultra Sound Latest Days Gestation 0 [email or web address] 09/24/2022 04/05/20 23 0 Pre- Flowsheet Flowsheet Date 09/24/2022 Truong Score Blood Edema Fundus Height Fundus Units Glucose Ketones Leukocytes Nitrite Labor Signs Protein Cervic Dilation Cervic Effacement Cervic Station neg none none trace Type Weight in lbs Pre/Post Dialysis Refused Weight 176.772269590471 BP Diastolic BP Location Tested BP Systolic BP Type 77 113 Fetus Heart Rate Present A 160 Fetus Movement A No Comments Elyssa is a 27yo at 12.3 for care. She has had two SVDs at term without complications. She quit using MJ 2 weeks ago. She started zoloft 4 weeks ago for anxiety and it is starting to improve. Precautions given. Normal NT today. Small MRACO. Routine care. Flowsheet Date 10/22/2022 Truong Score Blood Edema Fundus Height Fundus Units Glucose Ketones Leukocytes Nitrite Labor Signs Protein Cervic Dilation Cervic Effacement Cervic Station neg none none trace Type Weight in lbs Pre/Post Dialysis Refused Weight 185.455385612159 BP Diastolic BP Location Tested BP Systolic BP Type 78 118 Fetus Heart Rate Present A 140 Fetus Movement A Yes Comments Doing well, anxiety improved more. repeat TSH today, taking levo 25mcg. Anatomy US next visit. Flowsheet Date 11/19/2022 Truong Score Blood Edema Fundus Height Fundus Units Glucose Ketones Leukocytes Nitrite Labor Signs Protein Cervic Dilation Cervic Effacement Cervic Station Type Weight in lbs Pre/Post Dialysis Refused BP Diastolic BP Location Tested BP Systolic BP Type Fetus Heart Rate Present Fetus Movement Comments Flowsheet Date 11/19/2022 Truong Score Blood Edema Fundus Height Fundus Units Glucose Ketones Leukocytes Nitrite Labor Signs Protein Cervic Dilation Cervic Effacement Cervic Station trace none trace Type Weight in lbs Pre/Post Dialysis Refused Weight 193.08231706554 BP Diastolic BP Location Tested BP Systolic BP Type 77 116 Fetus Heart Rate Present A 135 Fetus Movement A Yes Comments Doing great, no concerns. An atomy today complete and wnl. Will recheck TSH next visit. Flowsheet Date 12/17/2022 Truong Score Blood Edema Fundus Height Fundus Units Glucose Ketones Leukocytes Nitrite Labor Signs Protein Cervic Dilation Cervic Effacement Cervic Station neg trace 30 none trace Type Weight in lbs Pre/Post Dialysis Refused Weight 209.296979008657 BP Diastolic BP Location Tested BP Systolic BP Type 69 110 Fetus Heart Rate Present A 150 Fetus Movement A Yes Comments Doing well. TSH today. GCT n ext visit. Discuss Tdap next visit. US next for S>D. Flowsheet Date 01/12/2023 Truong Score Blood Edema Fundus Height Fundus Units Glucose Ketones Leukocytes Nitrite Labor Signs Protein Cervic Dilation Cervic Effacement Cervic Station Type Weight in lbs Pre/Post Dialysis Refused BP Diastolic BP Location Tested BP Systolic BP Type Fetus Heart Rate Present Fetus Movement Comments Flowsheet Date 01/12/2023 Truong Score Blood Edema Fundus Height Fundus Units Glucose Ketones Leukocytes Nitrite Labor Signs Protein Cervic Dilation Cervic Effacement Cervic Station neg none none trace Type Weight in lbs Pre/Post Dialysis Refused Weight 217.056527188505 BP Diastolic BP Location Tested BP Systolic BP Type 70 108 Fetus Heart Rate Present A 150 Fetus Movement A Yes Comments Doing fine, no concerns. Dis cussed and encouraged Tdap and flu shot. GCT today. US today 59% and breech. Flowsheet Date 01/27/2023 Truong Score Blood Edema Fundus Height Fundus Units Glucose Ketones Leukocytes Nitrite Labor Signs Protein Cervic Dilation Cervic Effacement Cervic Station neg trace 33 none trace Type Weight in lbs Pre/Post Dialysis Refused Weight 218.575838110034 BP Diastolic BP Location Tested BP Systolic BP Type 78 114 Fetus Heart Rate Present A 160 Fetus Movement A Yes Comments Doing well. Tons of FM. Grow th next visit for breech. Mood mostly good with some swings. Discuss vaccines next visit. Flowsheet Date 02/03/2023 Truong Score Blood Edema Fundus Height Fundus Units Glucose Ketones Leukocytes Nitrite Labor Signs Protein Cervic Dilation Cervic Effacement Cervic Station Type Weight in lbs Pre/Post Dialysis Refused BP Diastolic BP Location Tested BP Systolic BP Type Fetus Heart Rate Present Fetus Movement Comments Flowsheet Date 02/03/2023 Truong Score Blood Edema Fundus Height Fundus Units Glucose Ketones Leukocytes Nitrite Labor Signs Protein Cervic Dilation Cervic Effacement Cervic Station Type Weight in lbs Pre/Post Dialysis Refused Weight 222.25279916938 BP Diastolic BP Location Tested BP Systolic BP Type 76 R arm 113 sitting Fetus Heart Rate Present A 133 Fetus Movement A Yes Comments no complaints, no problems, routine care. To recheck thyroid today for the last. Flowsheet Date 02/25/2023 Truong Score Blood Edema Fundus Height Fundus Units Glucose Ketones Leukocytes Nitrite Labor Signs Protein Cervic Dilation Cervic Effacement Cervic Station 36 Type Weight in lbs Pre/Post Dialysis Refused Weight 224.003115790068 BP Diastolic BP Location Tested BP Systolic BP Type 75 L arm 119 sitting Fetus Heart Rate Present A 136 Present Fetus Movement A Yes Comments doing well, +FM, planning ep idural, ok for IOL, ok with delayed cord clamping, has preadmission scheduled f/u here 2 weeks precautions reviewed plan gbs next visit Flowsheet Date 03/11/2023 Truong Score Blood Edema Fundus Height Fundus Units Glucose Ketones Leukocytes Nitrite Labor Signs Protein Cervic Dilation Cervic Effacement Cervic Station neg trace none trace 1cm 30% -3 Type Weight in lbs Pre/Post Dialysis Refused Weight 225.305198324239 BP Diastolic BP Location Tested BP Systolic BP Type 77 117 Fetus Heart Rate Present A 152 Present Fetus Movement A Yes Comments patient is having some contr actions, pressure and swelling. doing well, +FM, gbs today, precautions and education Flowsheet Date 03/18/2023 Truong Score Blood Edema Fundus Height Fundus Units Glucose Ketones Leukocytes Nitrite Labor Signs Protein Cervic Dilation Cervic Effacement Cervic Station neg trace none trace 1cm 70% -2 Type Weight in lbs Pre/Post Dialysis Refused Weight 227.694733779940 BP Diastolic BP Location Tested BP Systolic BP Type 74 111 Fetus Heart Rate Present Fetus Movement A Yes Comments patient is having pain, cont ractions, and swelling. discussed risks and benefits of sertraline, pt will continue to take, on levothyroxine NST R, IOL 04/03/23 at 0600 Flowsheet Date 03/18/2023 Truong Score Blood Edema Fundus Height Fundus Units Glucose Ketones Leukocytes Nitrite Labor Signs Protein Cervic Dilation Cervic Effacement Cervic Station Type Weight in lbs Pre/Post Dialysis Refused BP Diastolic BP Location Tested BP Systolic BP Type Fetus Heart Rate Present Fetus Movement Comments Flowsheet Date 03/25/2023 Truong Score Blood Edema Fundus Height Fundus Units Glucose Ketones Leukocytes Nitrite Labor Signs Protein Cervic Dilation Cervic Effacement Cervic Station Type Weight in lbs Pre/Post Dialysis Refused BP Diastolic BP Location Tested BP Systolic BP Type Fetus Heart Rate Present Fetus Movement Comments Flowsheet Date 03/25/2023 Truong Score Blood Edema Fundus Height Fundus Units Glucose Ketones Leukocytes Nitrite Labor Signs Protein Cervic Dilation Cervic Effacement Cervic Station neg trace none trace Type Weight in lbs Pre/Post Dialysis Refused Weight 228.295261389356 BP Diastolic BP Location Tested BP Systolic BP Type 77 117 Fetus Heart Rate Present A 152 Fetus Movement A Yes Comments patient is having pain, cont ractions, swelling, nausea and vomiting. cervix the same, IOL scheduled 04/03, precautions reviewed , f/u one week Flowsheet Date 04/01/2023 Truong Score Blood Edema Fundus Height Fundus Units Glucose Ketones Leukocytes Nitrite Labor Signs Protein Cervic Dilation Cervic Effacement Cervic Station Type Weight in lbs Pre/Post Dialysis Refused BP Diastolic BP Location Tested BP Systolic BP Type Fetus Heart Rate Present Fetus Movement Comments Flowsheet Date 04/01/2023 Truong Score Blood Edema Fundus Height Fundus Units Glucose Ketones Leukocytes Nitrite Labor Signs Protein Cervic Dilation Cervic Effacement Cervic Station neg trace none trace 3cm 50% -2 Type Weight in lbs Pre/Post Dialysis Refused Weight 232.14513611132 BP Diastolic BP Location Tested BP Systolic BP Type 81 123 Fetus Heart Rate Present Fetus Movement A Yes Comments patient is having pain, cont ractions, and swelling. doing well IOL thursday, nst R education and precautions Flowsheet Date 04/01/2023 Truong Score Blood Edema Fundus Height Fundus Units Glucose Ketones Leukocytes Nitrite Labor Signs Protein Cervic Dilation Cervic Effacement Cervic Station Type Weight in lbs Pre/Post Dialysis Refused BP Diastolic BP Location Tested BP Systolic BP Type Fetus Heart Rate Present Fetus Movement Comments Menstrual History Last Menstrual Date Menses Monthly On Bcp Conception Prior Menses Frequency Hcg Plus Date Menarche Onset Age Genetic Screening And Infection History Question Response Note Mental Retardation/Autism false Patient's Age Will Be 35 Years Or Older At Estim ated Date of Delivery false Thalassemia (Belizean, Mosotho, Mediterranean, Or Background): MCV < 80 false Neural Tube Defect (Meningomyelocele, Spina Bifi da, Or Anencephaly) false Congenital Heart Defect false Down Syndrome false Ruperto-Sachs (eg, Mormon, Cajun, Upper [place]) f alse Kayy Disease false Sickle Cell Disease Or Trait () false Hemophilia Or Other Blood Disorders false Muscular Dystrophy false Cystic Fibrosis false [place]'s Chorea false Intellectual Disability/Autism false If Yes, Was Person Tested For Fragile X? false Other Inherited Genetic Or Chromosomal Disorder false Maternal Metabolic Disorder (eg, Type 1 Diabetes , PKU) false Patient Or Baby's Father Had A Child With Defects Not Listed Above false Recurrent Loss, Or A Stillbirth false Medications (including Suppl ements, Vitamins, Herbs, OTC Drugs), Illicit/Recreational Drugs, Alcohol true If Yes, Agent(s) And Strength/Dosage false Any Other Genetic History false Live With Someone With TB Or Exposed To TB false Patient Or Partner Has History Of Genital Herpes false Rash Or Viral Illness Since Last Menstrual Perio d false History Of STD, Gonorrhea, Chlamydia, HPV, Syphi lis false Other Infection History false History of HIV false History of Hepatitis false Prior GBS-infected child false Hemoglobinopathy Or Carrier false Other Structural Defect false Recent Travel History Outside of Country false Delivery Information Delivery Date Delivery Type Labor Anesthesia Weeks Gestation Incision Type Labor Labor Length Hrs Delivered By Post Complications Tubal Sterilization Discharge Date Comments 3 Induce d Regional-Ep idural 39.5 false Marisol Camacho CNM Anxiety in , Hypothyro idism, Marijuana user Discharge Information Feeding Method Contraceptive Method Maternal HG B and HCT Levels
[2025-01-31 13:02] VITALS: BP 134/87; PULSE 97; RESP 18; TEMP 36.7; O2SAT 97
[2025-01-31 13:11] LABS: BEDSIDEPREGUCG Positive (Negative)
[2025-01-31 13:13] LABS: Hematocrit 43.0 % (37.0-47.0); Hemoglobin 14.5 g/dL (12.0-15.0); Immature Granulocyte Percent A 0.4 % (0-0.5); Lymphocytes Absolute Auto 1.87 K/mm3 (0.9-3.2); Mean Corpuscular HGB Conc 33.7 g/dl (32-36); Mean Corpuscular Hemoglobin 29.8 pg (26-34); Mean Corpuscular Volume 88.3 fl (80-100); Nucleated Red Blood Cells Absolute Auto 0.000 K/mm3 (0.0-0.012); Nucleated Red Blood Cells Perc 0.0 % (0.0-0.2); Platelet Count Result 429 k/mm3 (150-375); Red Blood Count 4.87 M/mm3 (4.2-5.4); White Blood Count 13.4 K/mm3 (4.5-10.0)
[2025-01-31 13:19] LABS: Add Urine Microscopic? YES; Appearance Urine Turbid (Clear); Glucose Urine UA Negative (Negative); Leukocyte Esterase Ur 3+ LEU/UL (Negative); Nitrate Urine Positive (Negative); Specific Grav Ur 1.016 (1.001-1.035)
--- NOTE | 2025-01-31 13:19 | ED.ABDPAIN ---
HPI - Abdominal Pain General Chief Complaint: Abdominal Pain Stated Complaint: from UC I have something wrong with gallbladder/ Time Seen by Provider: 01/31/25 12:49 History of Present Illness HPI narrative: Patient is a 29-year-old female who presents to the ER with complaints of right upper quadrant abdominal pain, nausea and vomiting. She reports her symptoms started about a week ago. Patient is concerned she has urinary tract infection, as she has decreased output and increased frequency. She reports her last bowel movement was on Thursday and it was diarrhea. Patient denies any recent fevers, vaginal discharge, or vaginal bleeding. She reports she has been 3 times in past and had 3 vaginal living births. Patient is unsure the date of her last menstrual period, as she reports her periods are irregular. She endorses a history of ocular albinism, but denies any other medical history. Related Data Home Medications ?Medication ?Instructions ?Recorded ?Confirmed ?Last Taken ?Type lansoprazole 15 mg capsule,delayed 15 mg PO DAILY 03/09/23 03/09/23 04/02/23 20:00 History release (Prevacid 24Hr) levothyroxine 50 mcg tablet 50 mcg PO DAILY 03/09/23 03/09/23 04/02/23 20:00 History vits no.126-ferrous fum 1 tablet PO DAILY 03/09/23 03/09/23 03/31/23 20:00 History 28 mg iron-folic acid 800 mcg tablet (Classic ) sertraline 50 mg tablet 50 mg PO DAILY 03/09/23 03/09/23 04/02/23 20:00 History Allergies Allergy/AdvReac Type Severity Reaction Status Date / Time amoxicillin Allergy Rash Verified 01/31/25 13:02 Review of Systems Review of Systems: All systems reviewed & are unremarkable except as noted in HPI and below PMFSH Past Medical History Medical History Depression Hypothyroid Surgical History Surgical History History of eye surgery Family History Family History Other No pertinent family history Social History Social History (Reviewed 01/31/25 @ 14:51 by LEODAN Teran Smoking status: Former smoker Tobacco type: cigarettes Smoking end date: 05/04/15 Substance use: never Lack of Transportation: No Lack of Food: Never True Current Housing: I Have Housing Concerned About Future Housing: No Difficulty Paying Gas/Electric Bills: No Difficulty Paying for Meds: No Currently Unemployed: No Education: High School Diploma/GED Difficulty w/ Childcare or Family Care: No Spiritual care concerns: No Exam Narrative: GENERAL: Well appearing, well-nourished, non-toxic, in no acute distress. HEAD: Normocephalic, atraumatic. NECK: Supple. No adenopathy, no masses. RESPIRATORY: Airway patent, respirations nonlabored. Clear to auscultation bilaterally, no rales, rhonchi, wheezing. CARDIOVASCULAR: Regular rate and rhythm without murmurs, rubs, or gallops. Peripheral pulses 2+ and equal bilaterally. ABDOMINAL: Soft, RUQ tenderness, nondistended, no hepatosplenomegaly. Normoactive BS. MUSCULOSKELETAL: Moves all extremities. Strength/ROM intact without gross deformities. SKIN: Warm, dry, pallor. No rashes. NEURO: A&O X3. Speech clear. Cranial nerves II-XII intact. No ataxic movements. PSYCHIATRIC: Appropriate mood and affect. Normal interaction. Course Vital Signs Vital signs: Vital Signs Temperature 36.7 C 01/31/25 13:02 Pulse Rate 97 01/31/25 13:02 Respiratory Rate 18 01/31/25 13:02 Blood Pressure 134/87 01/31/25 13:02 Pulse Oximetry 97 01/31/25 13:02 Oxygen Delivery Room Air 01/31/25 13:02 Temperature 36.7 C 01/31/25 13:02 Pulse Rate 97 01/31/25 13:02 Respiratory Rate 18 01/31/25 13:02 Blood Pressure 134/87 01/31/25 13:02 Pulse Oximetry 97 01/31/25 13:02 Oxygen Delivery Room Air 01/31/25 13:02 MDM - Abdominal Pain MDM Narrative Medical decision making narrative: Patient is a 29-year-old female who presents to the ER with complaints of right upper quadrant abdominal pain, nausea and vomiting. She reports her symptoms started about a week ago. Patient is concerned she has urinary tract infection, as she has decreased output and increased frequency. She reports her last bowel movement was on Thursday and it was diarrhea. Patient denies any recent fevers, vaginal discharge, or vaginal bleeding. She reports she has been 3 times in past and had 3 vaginal living births. Patient is unsure the date of her last menstrual period, as she reports her periods are irregular. She endorses a history of ocular albinism, but denies any other medical history. Labs Ordered: CBC, CMP, lipase, UA, beta hCG Imaging Ordered: Abdominal ultrasound Ultrasound, transvaginal ultrasound Medications Ordered: Potassium, 1 L normal saline IV bolus, Zofran 4 mg IV Diagnosis: Intrauterine , urinary tract infection Patient Education/Shared MDM: Results of lab work and imaging shared with patient. She endorses improvement of symptoms following medication administration. Patient strongly advised to maintain hydration status upon discharge and follow-up with OBGYN as soon as possible. She will be discharged home with a prescription for Keflex and Reglan. Strict return precautions provided. Patient verbalized understanding and is in agreement with plan. Vital signs stable at time of discharge. All questions answered. Differential Diagnosis Differential diagnosis: Likely abdominal pain and other (Cholecystitis, urinary tract infection, intrauterine ) Lab Data Attestation: I reviewed the patient's lab results. 01/31/25 13:04 01/31/25 13:04 Labs: Lab Results 01/31/25 01/31/25 Range/Units 13:04 13:09 WBC 13.4 H (4.5-10.0) K/mm3 RBC 4.87 (4.2-5.4) M/mm3 Hgb 14.5 D (12.0-15.0) g/dL Hct 43.0 (37.0-47.0) % MCV 88.3 (80-100) fl MCH 29.8 (26-34) pg MCHC 33.7 (32-36) g/dl RDW 12.7 (11.5-14.5) % Plt Count 429 H D (150-375) k/mm3 MPV 10.1 (7.4-10.4) fl Immature Gran % (Auto) 0.4 (0-0.5) % Neut % (Auto) 79.0 H (45.5-73.1) % Lymph % (Auto) 14.0 L (18.3-44.2) % [place] % (Auto) 5.6 (2.6-8.5) % Eos % (Auto) 0.7 (0-4.4) % Baso % (Auto) 0.3 (0.2-1.2) % Lymph # (Auto) 1.87 (0.9-3.2) K/mm3 [place] # (Auto) 0.8 H (0.1-0.6) K/mm3 Eos # (Auto) 0.1 (0-0.3) K/mm3 Baso # (Auto) 0.0 (0.0-0.1) K/mm3 Abs Immat Gran (auto) 0.05 H (0.00-0.031) K/mm3 Absolute Neuts (auto) 10.6 H (1.3-6.7) K/mm3 Absolute Nucleated RBC 0.000 (0.0-0.012) K/mm3 Nucleated RBC % 0.0 (0.0-0.2) % Sodium 135 L (137-145) mmol/L Potassium 3.1 L (3.4-5.0) mmol/L Chloride 102 (98-107) mmol/L Carbon Dioxide 23 (22-30) mmol/L Anion Gap 10 (4-12) mmol/L BUN 10 (7-17) mg/dL Creatinine 0.66 L (0.7-1.0) mg/dL Estim Creat Clear Calc 119 ml/min Estimated GFR > 60 (59 - ) Glucose 114 H (65-110) mg/dL Calcium 9.5 (8.4-10.2) mg/dL Total Bilirubin 0.8 (0.2-1.3) mg/dL AST 47 H (14-36) U/L ALT 55 H (6-35) U/L Alkaline Phosphatase 87 (38-126) U/L Total Protein 8.6 H (6.3-8.2) g/dL Albumin 4.8 (3.5-5.1) g/dL Lipase 62 (23-300) U/L Beta HCG, Quant 74886.00 mIU/ML Urine Color Yellow (Yellow) Urine Appearance Turbid H (Clear) Urine pH 5.5 (5.0-9.0) Ur Specific [place] 1.016 (1.001-1.035) Urine Protein Trace (Negative) mg/dL Urine Glucose (UA) Negative (Negative) mg/dL Urine Ketones Trace H (Negative) mg/dL Ur Blood (Man) Negative (Negative) Urine Nitrate Positive H (Negative) Urine Bilirubin Negative (Negative) Urine Urobilinogen 1.0 (<2.0) mg/dL Leukocyte Esterase Rfl 3+ H (Negative) GEETHA/UL Urine RBC 0-2 (0-2) /hpf Urine WBC 51-100 H (0-3) /hpf Ur Squamous Epith Cells Moderate (Few) /hpf Urine Bacteria 4+ H /hpf Urine Casts 3-5 POC Urine HCG, Qual Positive (Negative) Imaging Data Attestation: I personally reviewed and interpreted this imaging study as follows: Radiologist's impression: ITS Impressions Abdomen Ultrasound 01/31/25 14:01 IMPRESSION: 1. No sonographic evidence for acute cholecystitis. If symptoms persist or worsen, consider a short-term follow-up study or additional imaging for further assessment. Ultrasound 01/31/25 14:17 IMPRESSION: 1. Single live intrauterine with an estimated gestational age of 6 weeks, 4 days by current ultrasound with estimated date of delivery of September 22, 2025. 2. There is a 1.1 x 0.9 x 2.0 cm probable subchorionic hemorrhage. A short-term follow-up ultrasound and serial beta hCGs is recommended. Discharge Plan Discharge Clinical Impression: , Urinary tract infection, Nausea and vomiting during Patient Disposition: Home Condition: Stable Instructions: Antibiotic Form, Urinary Tract Infection in (ED) Additional Instructions: Please return to the ER with any worsening symptoms. Follow-up with your OBGYN as soon as possible. Please stop taking your control. Complete your full dose of antibiotics. You may take Reglan as needed for nausea. Please remember to drink lots of water. Patient Language: Kazakh Prescriptions: New metoclopramide HCl [Reglan] 10 mg tablet 10 mg PO Q6H PRN (Reason: nausea and vomiting) Qty: 30 0RF cephalexin 500 mg capsule 500 mg PO Q8H 7 Days Qty: 21 0RF No Action Classic 28 mg iron- 800 mcg Tablet 1 tablet PO DAILY levothyroxine 50 mcg Tablet 50 mcg PO DAILY lansoprazole [Prevacid 24Hr] 15 mg Capsule,Delayed Release(Dr/Ec) 15 mg PO DAILY sertraline 50 mg Tablet 50 mg PO DAILY Follow-up/Referrals: PHYSICIAN,EXPERIMENTAL OUTBOARD MOTORS MECHANIC [Primary Care Provider, Internal Medicine] Bradly Kam MD [Physician, SUPERINTENDENT AUTOMOTIVE] Referral Note: OBGYN Stand Alone Forms: Work/School Release IP Time of Disposition: 17:29
--- OUTSIDE RECORDS SUMMARY | 2025-01-31 13:20 | XMS_ITS | Clinical Summary ---
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 Gender Identity Not on file Sexual Orientation [...] Negative Ketones, ur, POC Trace(A) Negative Specific [place], POC 1.025 1.003 - 1.030 Blood, ur, POC Trace(A) Negative pH, ur, POC 5.5 5.0 - 8.0 Protein, ur, POC 100.(A) Negative Urobilinogen, urine, POC 2.0(A) 0.2 - 1.0 mg/dL Nitrite, ur, POC Positive(A) Negative Leukocytes, ur, POC Small(A) Negative Lot Number [id number] Urine 01/31/2025 10:1 1 AM CDT us Clara Escobedo NP POINT OF CARE TEST ORDERABLES F inal Result from Last 3 Months Insurance [facility] Care Teams Treating Plant Supervisor Relationship Specialty Start Date End Date Unknown, Notinfile PCP - General 05/30/24
[2025-01-31 13:32] LABS: Alanine Aminotransferase 55 U/L (6-35); Albumin Level 4.8 g/dL (3.5-5.1); Alkaline Phosphatase 87 U/L (38-126); Anion Gap 10 mmol/L (4-12); Aspartate Amino Transferase 47 U/L (14-36); Bilirubin,Total 0.8 mg/dL (0.2-1.3); Blood Urea Nitrogen 10 mg/dL (7-17); Calcium 9.5 mg/dL (8.4-10.2); Carbon Dioxide 23 mmol/L (22-30); Chloride 102 mmol/L (98-107); Estimated CRCL calculation 119 ml/min; Estimated Glomerular Filt Rate > 60; Glucose 114 mg/dL (65-110); Lipase 62 U/L (23-300); Potassium 3.1 mmol/L (3.4-5.0); Sodium 135 mmol/L (137-145); Total Protein 8.6 g/dL (6.3-8.2)
[2025-01-31 14:50] LABS: Beta HCG Quantitative 46133.00 mIU/ML
[2025-01-31] MEDS: POTASSIUM CHLORIDE 20 MEQ PACKET (FOR LIQUID) 40 MEQ PO (15:33)
[2025-01-31] MEDS: ONDANSETRON INJ 4 MG/2 ML VIAL IV PUSH (15:33)
[2025-01-31] MEDS: SODIUM CHLORIDE 0.9% IV 1,000 ML 999 ML IV CONT (15:33)
[2025-01-31] MEDS: CEPHALEXIN 500 MG CAPSULE PO (17:42)
[2025-01-31 17:44] VITALS: BP 127/73; PULSE 85; RESP 19; O2SAT 98
== END 2025-01-31 17:45 | disposition home or self-care (01) ==
PROVIDERS: Emergency Medicine; Emergency Provider Registered Nurse
DX: O21.9 Vomiting of pregnancy, unspecified (principal); O23.41 Unspecified infection of urinary tract in pregnancy, first trimester; N39.0 Urinary tract infection, site not specified; O99.281 Endocrine, nutritional and metabolic diseases complicating pregnancy, first trimester; E70.319 Ocular albinism, unspecified; E03.9 Hypothyroidism, unspecified; O99.341 Other mental disorders complicating pregnancy, first trimester; F32.A Depression, unspecified; Z87.891 Personal history of nicotine dependence; Z3A.01 Less than 8 weeks gestation of pregnancy; Z79.899 Other long term (current) drug therapy
CPT/HCPCS: 36415; 76705; 76801; 80053; 81001; 81025; 83690; 84702; 85025; 96361; 96374; 99284; A9270; J2405; J7030